=== PATIENT | female | born 2000 | race Caucasian/White ===

== ENCOUNTER 2021-08-09 21:51 | Emergency (ER) | payer OTHER ==
[2021-08-09 22:30] LABS: HEMOGLOBIN 13.3 gm/dl (12.3-15.3); RED BLOOD COUNT 4.17 M/UL (4.00-5.10); WHITE BLOOD COUNT 8.8 K/UL (4.5-11.0)
[2021-08-09 22:56] LABS: BUN/CREATININE RATIO 16 (0-10)
[2021-08-09] MEDS ORDERED: OMNICEF 300 MG300 MG PO (23:53)
== END 2021-08-10 00:19 | disposition home or self-care (01) ==
LOC: ER1 21:51
PROVIDERS: Physician Assistant
DX: R31.9 Hematuria, unspecified (principal); I10 Essential (primary) hypertension
CPT/HCPCS: 80053; 81001; 84703; 85025; 87086; 99284